=== PATIENT | male | born 1930 | race Caucasian/White ===

== ENCOUNTER 2017-12-23 15:09 | Emergency (ER) | payer OTHER ==
[~2017-12-23] VITALS: Ht 167.6 cm; Wt 61.7 kg
[~2017-12-23 15:09] MED LIST: ASPIR 8181 MG PO; LEVOTHROID25 MCG PO; LEVOTHYROXINE75 MCG PO; MULTI-VITAMIN1 EACH PO; NAPROSYN500 MG PO; NEXIUM20 MG PO; VICODIN 5-5001 EACH PO
[2017-12-23 16:00] LABS: BASOPHILS # (AUTO) 0.1 (0.0-0.1); BASOPHILS % 1.4 % (0.0-1.0); EOSINOPHILS # (AUTO) 0.9 (0.0-0.4); EOSINOPHILS % 11.2 % (0.0-6.0); HEMOGLOBIN 14.5 g/dL (14.0-18.0); LYMPHOCYTES # (AUTO) 1.9 (1.0-3.2); LYMPHOCYTES % 24.1 % (18.0-39.1); MEAN CORPUSCULAR HEMOGLOBIN 33.2 pg (28-32); MEAN CORPUSCULAR HGB CONC 34.5 g/dL (31-35); MEAN CORPUSCULAR VOLUME 96.1 fL (81-99); MONOCYTES # (AUTO) 0.9 (0.2-0.8); MONOCYTES % 11.3 % (4.4-11.3); NEUTROPHILS # (AUTO) 4.1 (2.1-6.9); NEUTROPHILS % 51.5 % (38.7-80.0); PLATELET COUNT 155 x10e3/uL (140-360); RED BLOOD COUNT 4.37 x10e6/uL (4.3-5.7)
[2017-12-23 16:03] LABS: BILIRUBIN,URINE NEGATIVE (NEGATIVE); CLARITY,URINE CLEAR (CLEAR); COLOR,URINE YELLOW (YELLOW); KETONES,URINE NEGATIVE (NEGATIVE); LEUKOCYTE ESTERASE ,URINE NEGATIVE (NEGATIVE); NITRITE,URINE NEGATIVE (NEGATIVE); PROTEIN,URINE DIPSTICK NEGATIVE (NEGATIVE); URINE UROBILINOGEN 0.2 mg/dL (0.2 - 1)
[2017-12-23 16:09] LABS: INR 1.25; PROTHROMBIN TIME 14.8 seconds (11.9-14.5)
[2017-12-23 16:10] LABS: PARTIAL THROMBOPLASTIN TIME 28.5 seconds (23.8-35.5)
[2017-12-23 16:17] LABS: BACTERIA,URINE RARE /HPF; RBC,URINE 0-5 /HPF (0-5); WBC,URINE (MAN) 0-5 /HPF (0-5)
[2017-12-23 16:19] LABS: ALANINE AMINOTRANSFERASE 14 IU/L (0-55); ALBUMIN 3.8 g/dL (3.5-5.0); ALBUMIN/GLOBULIN RATIO 1.4 (0.8-2.0); ALKALINE PHOSPHATASE 60 IU/L (40-150); BLOOD UREA NITROGEN 14 mg/dL (7-26); BUN/CREATININE RATIO 18 (6-25); CALCIUM 9.7 mg/dL (8.4-10.2); CARBON DIOXIDE 27 mmol/L (22-29); CHLORIDE 107 mmol/L (98-107); CREATINE KINASE 42 IU/L (30-200); CREATININE, SERUM 0.76 mg/dL (0.72-1.25); EST GLOMERULAR FILTRATION RATE > 60 ML/MIN (60-); GLUCOSE 104 mg/dL (74-118); SODIUM 138 mmol/L (136-145)
--- NOTE | 2017-12-23 16:50 | Diagnostic Imaging Report ---
PROCEDURE: A single AP view of the chest. COMPARISON: 01/24/2017 INDICATIONS: DIZZINESS, BLACK OUT FINDINGS: Lines/tubes: None. Lungs: The lungs are well inflated and clear. There is no evidence of pneumonia or pulmonary edema. Pleura: There is no pleural effusion or pneumothorax. Heart and mediastinum: Normal heart size. Moderate tortuosity of the thoracic aorta, unchanged. Bones: No acute bony abnormality. Multilevel degenerative changes of the thoracic spine. IMPRESSION: No evidence of infection or edema. Dictated by: Reid Pizano M.D. on 12/23/2017 at 16:54 Electronically approved by: Reid Pizano M.D. on 12/23/2017 at 16:54
--- NOTE | 2017-12-23 21:48 | Diagnostic Imaging Report ---
Examination: CT head without contrast Clinical Indication: Dizziness. Technique: Transaxial noncontrast images from the skull base through the vertex were obtained. Sagittal and coronal reformatted images were done. Comparison: None. Findings: Scalp: No abnormalities. Bones: Intact. No fractures. No blastic or lytic lesions. Brain sulci: Mild volume loss for patient's age. Ventricles: No hydrocephalus. Extra-axial space: No abnormalities. Parenchyma: There are mild confluent areas of low-attenuation within subcortical and periventricular white matter, nonspecific, but could represent microvascular ischemic disease. Chronic lacunar infarcts are demonstrated in the right caudate head and anterior limb of the right internal capsule No masses, hemorrhage, or acute or chronic cortical based vascular insults. Suprasellar region: No abnormalities. Craniocervical junction: The foramen magnum is patent. No Chiari one malformation. Incidental findings: Bilateral cataract surgery. Atherosclerotic calcification of the cavernous and supraclinoid internal carotid and V4 segments of the bilateral vertebral arteries. Impression: 1. No acute intracranial abnormality. 2. Moderate chronic microvascular ischemic change and mild volume loss. 3. Chronic infarcts, as above. Signed by: Dr. Misty Saavedra M.D. on 12/23/2017 9:45 PM
[2017-12-23 22:04] VITALS: BP 129/68
== END 2017-12-23 22:14 | disposition home or self-care (01) ==
LOC: ER 15:09
DX: R10.9 Unspecified abdominal pain (principal); R42 Dizziness and giddiness; F03.90 Unspecified dementia, unspecified severity, without behavioral disturbance, psychotic disturbance, mood disturbance, and anxiety; K21.9 Gastro-esophageal reflux disease without esophagitis; Z98.890 Other specified postprocedural states
CPT/HCPCS: 36415; 70450; 71045; 80053; 81001; 82550; 82553; 83880; 84484; 85025; 85610; 85730; 93005; 99284

== ENCOUNTER 2019-08-25 14:19 | Emergency (ER) | payer OTHER ==
[~2019-08-25] VITALS: Ht 167.6 cm; Wt 61.7 kg
--- OUTSIDE RECORDS SUMMARY | 2019-08-25 14:23 | XMS REPORT ---
Author Author [facility] Address Unknown Phone Unavailable Care Team Providers Care Coding Quality Analyst Name Role Phone Wan HOLLOWAY KATYA Unavailable Unavailable Problems This patient has no known problems. Allergies, Adverse Reactions, Alerts This patient has no known allergies or adverse reactions. Medications This patient has no known medications. Results Test Description Test Time Test Comments Text Results Atomic Results Result Comments CT BRAIN WO 2017-12-23 21:43:00 [place] [address] Patient Name: ROSA MARIA MCKEON MR #: [id number] : 1930 Age/Sex: 87/M Req #: [id number] [facility] Physician: Ordered by: PAPA ARANDA MD Report #: [id number] Location: ER Room/Bed: Procedure: [id number] CT/CT BRAIN WO Exam Date: 12/23/17 Exam Time: 2049 REPORT STATUS: Signed Examination: CT head without contrast Clinical Indication: Dizziness. Technique: Transaxial noncontrast images from the skull base through the vertex were obtained. Sagittal and coronal reformatted images were done. Comparison: None. Findings: Scalp: No abnormalities. Bones: Intact. No fractures. No blastic or lytic lesions. Brain sulci: Mild volume loss for patient's age. Ventricles: No hydrocephalus. Extra-axial space: No abnormalities. Parenchyma: There are mild confluent areas of low- attenuation within subcortical and periventricular white matter, nonspecific, but could represent microvascular ischemic disease. Chronic lacunar infarcts are demonstrated in the right caudate head and anterior limb of the right internal capsule No masses, hemorrhage, or acute or chronic cortical based vascular insults. Suprasellar region: No abnormalities. Craniocervical junction: The foramen magnum is patent. No Chiari one malformation. Incidental findings: Bilateral cataract surgery. Atherosclerotic calcification of the cavernous and supraclinoid internal carotid and V4 segments of the bilateral vertebral arteries. Impression: 1. No acute intracranial abnormality. 2. Moderate chronic microvascular ischemic change and mild volume loss. 3. Chronic infarcts, as above. Signed by: Dr. Msity Saavedra M.D. on 12/23/2017 9:45 PM Dictated By: MISTY PEREA MD 44 Transcribed By: ROMAIN on 12/23/172144 COPY TO: PAPA ARANDA MD CHEST SINGLE (NOT PORTABLE) 2017-12-23 16:54:00 [place] [address] Patient Name: ROSA MARIA MCKEON MR #: [id number] : 1930 Age/Sex: 87/M Req #: [id number] Adm Physician: Ordered by: KATYA HOLLOWAY MD Report #: [id number] Location: ER Room/Bed: Procedure: [id number] DX/CHEST SINGLE (NOT PORTABLE) Exam Date: 12/23/17 Exam Time: 1622 REPORT STATUS: Signed PROCEDURE: A single AP view of the chest. COMPARISON: 01/24/2017 INDICATIONS: DIZZINESS, BLACK OUT FINDINGS: Lines/tubes: None. Lungs: The lungs are well inflated and clear. There is no evidence of pneumonia or pulmonary edema. Pleura: There is no pleural effusion or pneumothorax. Heart and mediastinum: Normal heart size. Moderate tortuosity of the thoracic aorta, unchanged. Bones: No acute bony abnormality. Multilevel degenerative changes of the thoracic spine. IMPRESSION: No evidence of infection or edema. Dictated by: Mita Pizano M.D. on 12/23/2017 at 16:54 Electronically approved by: Mita Pizano M.D. on 12/23/2017 at 16:54 Dictated By: MITA PIZANO MD 1652 Transcribed By: MONIQUE on 12/23/17 1654 COPY TO: KATYA HOLLOWAY MD
[2019-08-25] MEDS ORDERED: ONDANSETRON HCL INJ 2MG/ML 2ML 2 MG/ML VIAL IV STA (14:49)
[2019-08-25] MEDS ORDERED: ASPIRIN 81 MG CHEW TAB PO ONE (15:00)
[2019-08-25 15:42] LABS: BASOPHILS # (AUTO) 0.1 (0.0-0.1); BASOPHILS % 1.2 % (0.0-1.0); EOSINOPHILS # (AUTO) 0.4 (0.0-0.4); HEMATOCRIT 44.9 % (38.2-49.6); HEMOGLOBIN 15.6 g/dL (14.0-18.0); LYMPHOCYTES # (AUTO) 1.1 (1.0-3.2); LYMPHOCYTES % 13.5 % (18.0-39.1); MEAN CORPUSCULAR HEMOGLOBIN 33.2 pg (28-32); MEAN CORPUSCULAR HGB CONC 34.7 g/dL (31-35); MEAN CORPUSCULAR VOLUME 95.5 fL (81-99); MONOCYTES # (AUTO) 0.8 (0.2-0.8); MONOCYTES % 9.7 % (4.4-11.3); NEUTROPHILS % 70.2 % (38.7-80.0); PLATELET COUNT 140 x10e3/uL (140-360); RED CELL DISTRIBUTION WIDTH 13.5 % (11.7-14.4)
[2019-08-25 15:47] LABS: INR 1.09; PROTHROMBIN TIME 14.8 seconds (11.9-14.5)
[2019-08-25 15:48] LABS: PARTIAL THROMBOPLASTIN TIME 30.4 seconds (23.8-35.5)
[2019-08-25 15:58] LABS: ALANINE AMINOTRANSFERASE 11 IU/L (0-55); ALBUMIN 3.8 g/dL (3.5-5.0); ALBUMIN/GLOBULIN RATIO 1.3 (0.8-2.0); ALKALINE PHOSPHATASE 75 IU/L (40-150); ANION GAP 16.2 mmol/L (8-16); BLOOD UREA NITROGEN 13 mg/dL (7-26); BUN/CREATININE RATIO 16 (6-25); CALCIUM 9.7 mg/dL (8.4-10.2); CARBON DIOXIDE 22 mmol/L (22-29); CHLORIDE 102 mmol/L (98-107); CREATINE KINASE 32 IU/L (30-200); EST GLOMERULAR FILTRATION RATE > 60 ML/MIN (60-); GLUCOSE 91 mg/dL (74-118); POTASSIUM 4.2 mmol/L (3.5-5.1); SODIUM 136 mmol/L (136-145)
--- NOTE | 2019-08-25 16:10 | Diagnostic Imaging Report ---
EXAMINATION: PA and lateral views of the chest. COMPARISON: None CLINICAL HISTORY: Cough DISCUSSION: Lines/tubes: Sternotomy wires Lungs: The lungs are well inflated and clear. No pneumonia or pulmonary edema. Pleura: No pleural effusion or pneumothorax. Heart and mediastinum: Prominent heart. Tortuous aorta. Bones and soft tissues: No acute bony abnormalities. IMPRESSION: No acute cardiopulmonary abnormalities. Signed by: Dr. Aaron Rosado M.D. on 08/25/2019 4:08 PM
[2019-08-25 16:27] LABS: INFLUENZAE A&B ANTIGEN (RAPID) NEGATIVE (NEGATIVE); STREPTOCOCCUS GRP A ANTIGEN NEGATIVE (NEGATIVE)
[2019-08-25] MEDS ORDERED: HYDROCODONE/CHLORPHENIRAMINE 5 ML LIQCR PO ONE (16:30)
[2019-08-25 18:05] LABS: CREATINE KINASE MB 1.1 ng/mL (0-5.0)
[2019-08-25 18:45] VITALS: BP 109/90
== END 2019-08-25 18:53 | disposition home or self-care (01) ==
LOC: ER 14:19
DX: J20.9 Acute bronchitis, unspecified (principal); R07.89 Other chest pain; E03.9 Hypothyroidism, unspecified; F03.90 Unspecified dementia, unspecified severity, without behavioral disturbance, psychotic disturbance, mood disturbance, and anxiety; Z95.3 Presence of xenogenic heart valve; Z87.891 Personal history of nicotine dependence; Z79.82 Long term (current) use of aspirin; K21.9 Gastro-esophageal reflux disease without esophagitis
CPT/HCPCS: 36415; 71046; 80053; 82550; 82553; 83518; 83735; 83880; 84484; 85025; 85610; 85730; 87040; 87070; 87400; 93005; 99283; J2405

== ENCOUNTER 2020-04-05 15:22 | Emergency (ER) | payer OTHER ==
[~2020-04-05] VITALS: Ht 165.1 cm; Wt 59.0 kg
--- NOTE | 2020-04-05 17:00 | Diagnostic Imaging Report ---
Exam: ELBOW RIGHT COMPLETE - 3 views History: Right elbow pain, fall Comparison: None. Findings: Subtle cortical irregularity along the lateral aspect of the radial head, may represent small nondisplaced fracture. Diffuse osseous demineralization. Enthesopathic changes of the medial lateral epicondyles. No joint malalignment or dislocation. Limited evaluation of joint effusion given positioning. Advanced degenerative changes of the ulnotrochlear joint. Diffuse soft tissue swelling. Scattered vascular calcifications. Impression: 1. Subtle cortical irregularity along the lateral aspect of the radial head, may represent small nondisplaced radial head fracture. 2. 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 Signed by: Dr. Bart Staley M.D. on 04/05/2020 4:57 PM
--- NOTE | 2020-04-05 17:05 | Diagnostic Imaging Report ---
Exam: Head CT without contrast History: Trauma, fall Comparison studies: Head CT 12/23/2017 Technique: Axial images were obtained from the skull base to the vertex. Coronal and sagittal images reconstructed from the axial data. Dose modulation, iterative reconstruction, and/or weight based adjustment of the mA/kV was utilized to reduce the radiation dose to as low as reasonably achievable. Radiation dose: Total DLP: 1017 mGy*cm. Estimated effective dose: DLP x 0.015 Intravenous contrast: None Findings: Scalp: Small left frontal scalp hematoma is without associated subcutaneous emphysema. No retained hyperdense foreign body. Bones: No fractures, blastic or lytic lesions. Brain sulci: Moderately prominent Ventricles: Moderate compensatory dilatation. No hydrocephalus. Extra-axial spaces: No masses, no fluid collection. Parenchyma: No mass, acute hemorrhage or acute cortical insult. Unchanged chronic insult with encephalomalacia and gliosis centered along the left middle frontal gyrus. Unchanged chronic lacunar infarct in the head of the right caudate nucleus. Ill-defined and confluent hypodensities in the supratentorial white matter are nonspecific but are most compatible with chronic microvascular ischemic changes. Sellar/suprasellar region: No abnormalities. Craniocervical junction: Patent foramen magnum. No Chiari one malformation. Incidental findings: Atherosclerotic calcifications in the carotid siphons and intradural vertebral arteries. IMPRESSION: 1. Left frontal scalp hematoma without underlying fracture 2. No acute intracranial abnormalities. 3. No other changes from the prior head CT of 12/23/2017. 4. Chronic findings: Moderate generalized parenchymal volume loss, chronic left middle frontal insult, chronic right caudate nucleus lacunar infarct and moderate microvascular ischemic changes. Signed by: Dr. Prosper Torrez M.D. on 04/05/2020 5:01 PM
--- NOTE | 2020-04-05 17:18 | Diagnostic Imaging Report ---
History: Trauma, fall Comparison studies: None Technique: Axial images were obtained through the cervical region. Coronal and sagittal images reconstructed from the axial data. Dose modulation, iterative reconstruction, and/or weight based adjustment of the mA/kV was utilized to reduce the radiation dose to as low as reasonably achievable. Intravenous contrast: None Findings: Atlantoaxial articulation: Intact. Alignment: Straining of the usual cervical lordotic curvature. Approximately 2 to 3 mm degenerative retrolisthesis of C5 on C6 and anterolisthesis of T1 on T2. Cervicomedullary junction: No abnormalities. The foramen magnum is patent. Soft tissues: No gross acute abnormalities. Vertebrae: No fractures, infection or neoplasm. Degenerative changes: Disc degeneration, mild from C2 to C4, severe at C4-C5 and C5-C6, moderate at C6-C7 and mild from C7 to T2. The C4-C5 disc space and facets are fused. Mild to moderate canal stenosis at C4-C5 and C5-C6 due to disc osteophyte complexes and minimal retrolisthesis of C5 on C6. Advanced multilevel facet arthrosis. Multilevel uncovertebral and facet arthrosis result in multilevel foraminal stenosis which is mild bilaterally at C2-C3, severe left and mild right at C3-C4, moderate left and mild right at C4-C5, severe left and moderate right at C5-C6, and moderate left and mild right at C6-C7. Incidental findings: Scattered calcified atherosclerosis.. IMPRESSION: 1. No cervical spine fracture. 2. Degenerative retrolisthesis of C5 on C6 and anterolisthesis of T1 on T2. 3. Additional advanced multilevel degenerative changes as described. Ligament, spinal cord and or vascular abnormalities cannot be excluded on the basis of this examination. Signed by: Dr. Prosper Torrez M.D. on 04/05/2020 5:14 PM
--- NOTE | 2020-04-05 17:50 | Emergency Department Note ---
History of Present Illnes History of Present Illness Chief Complaint: Extremity Trauma/Pain History of Present Illness This is a 89 year old male pt brought in by daughter for evaluation of a closed head injury and right elbow pain s/p fall, pt sustained a fall today while pulling weeds from his yard, abrasion noted to the left side of the forehead and limited ROM to the right arm, tenderness to right elbow noted . Historian: Patient Arrival Mode: Car Last Chalker Required: No Onset (how long ago): day(s) (FALL YESTERDAY) Location: HEAD, RIGHT ELBOW Quality: PAIN Radiation: Reports non-radiation Severity: moderate Onset quality: sudden Timing of current episode: constant Progression: unchanged Chronicity: new Context: Reports trauma/injury; Denies recent illness Relieving factors: none Exacerbating factors: none Associated symptoms: Reports denies other symptoms Past Medical/Family History Physician Review I have reviewed the patient's past medical and family history. Any updates have been documented here. 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 AAA REPAIR Social History Smoking Cessation: Never Smoker Counseling Performed: No Alcohol Use: None Any Illegal Drug Use: No Other Last Tetanus: UTD Any Pre-Existing Lines (PICC,: No Review of Systems Review of Systems Constitutional: Reports as per HPI EENTM: Reports no symptoms Cardiovascular: Reports no symptoms Respiratory: Reports no symptoms Gastrointestinal: Reports no symptoms Genitourinary: Reports no symptoms Musculoskeletal: Reports as per HPI Integumentary: Reports no symptoms Neurological: Reports as per HPI Psychological: Reports no symptoms Endocrine: Reports no symptoms Hematological/Lymphatic: Reports no symptoms Physical Exam Related Data Allergies: Coded Allergies: Penicillins (Verified Allergy, Mild, N/V, 12/23/17) Triage Vital Signs Vital Signs Date Time Temp Pulse Resp B/P (MAP) Pulse Ox O2 Delivery O2 Flow Rate FiO2 04/05/20 15:49 99.0 80 18 132/72 98 Room Air Vital signs reviewed: Yes Physical Exam CONSTITUTIONAL Constitutional: Present well-developed, Present well-nourished HENT HENT: Present normocephalic, Present other (ABRASION TO FOREHEAD JUST LEFT OF MIDLINE) HENT L/R: Present left ext ear normal, Present right ext ear normal EYES Eyes: Reports PERRL, Reports conjunctivae normal NECK Neck: Present ROM normal PULMONARY Pulmonary: Present effort normal, Present breath sounds normal CARDIOVASCULAR Cardiovascular: Present regular rhythm, Present heart sounds normal, Present capillary refill normal, Present normal rate GASTROINTESTINAL Abdominal: Present soft, Present nontender, Present bowel sounds normal GENITOURINARY Genitourinary: Present exam deferred SKIN Skin: Present warm, Present dry MUSCULOSKELETAL Musculoskeletal: Present swelling (MILD SWELLING TO RIGHT ELBOW, TENDERNESS AND DECR ROM DUE TO PAIN, DISTAL N/V INTACT) NEUROLOGICAL Neurological: Present alert, Present oriented x 3, Present no gross motor or sensory deficits PSYCHOLOGICAL Psychological: Present mood/affect normal, Present judgement normal Results Imaging Imaging results reviewed: Yes Impressions Exam: ELBOW RIGHT COMPLETE - 3 views History: Right elbow pain, fall Comparison: None. Findings: Subtle cortical irregularity along the lateral aspect of the radial head, may represent small nondisplaced fracture. Diffuse osseous demineralization. Enthesopathic changes of the medial lateral epicondyles. No joint malalignment or dislocation. Limited evaluation of joint effusion given positioning. Advanced degenerative changes of the ulnotrochlear joint. Diffuse soft tissue swelling. Scattered vascular calcifications. Impression: 1. Subtle cortical irregularity along the lateral aspect of the radial head, may represent small nondisplaced radial head fracture. 2. 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 Signed by: Dr. Bart Staley M.D. on 04/05/2020 4:57 PM Assessment & Plan Medical Decision Making MDM FALL, ABRASION TO FOREHEAD, RIGHT ELBOW PAIN/SWELLING - CHECK CT HEAD/C-SPINE, XRAYS OF R ELBOW - R/O CEREBRAL BLEED, C-SPINE FX, FRACTURE RADIUS OR ULNA Reassessment Reassessment SPLINT RIGHT ELBOW, DC HOME, F/U PCP AND DR Senait FARIA, HEAD SHEET PRECAUTIONS Assessment & Plan Final Impression: (1) Radial head fracture (2) Fall (3) Contusion of scalp Depart Disposition: HOME, SELF-CARE Last Vital Signs Date Time Temp Pulse Resp B/P (MAP) Pulse Ox O2 Delivery O2 Flow Rate FiO2 04/05/20 16:30 74 16 115/72 98 Room Air 04/05/20 15:49 99.0 Home Meds Reported Medications Levothyroxine Sodium (LEVOTHYROXINE SODIUM) 75 Mcg Tablet, 75 MCG PO DAILY, #30 TAB 01/24/17 Multivitamin (MULTI-VITAMIN DAILY) 1 Each Tablet, PO DAILY 06/23/13 Aspirin (ASPIR 81) 81 Mg Tablet.dr, 81 MG PO DAILY 06/23/13 Esomeprazole Magnesium (NEXIUM) 20 Mg Capsule.dr, 20 MG PO DAILY 06/23/13 Naproxen (NAPROSYN) 500 Mg Tablet, 500 MG PO DAILY 06/23/13 ИВАН DALLAS MD Apr 05, 2020 17:50
[2020-04-05] MEDS ORDERED: KETOROLAC TROMETHAMINE 30 MG/ML VIAL IM PRN (18:15)
== END 2020-04-05 18:48 | disposition home or self-care (01) ==
LOC: ER 15:47
DX: S52.121A Displaced fracture of head of right radius, initial encounter for closed fracture (principal); W01.0XXA Fall on same level from slipping, tripping and stumbling without subsequent striking against object, initial encounter; Y93.H2 Activity, gardening and landscaping; Y92.007 Garden or yard of unspecified non-institutional (private) residence as the place of occurrence of the external cause; I10 Essential (primary) hypertension; K21.9 Gastro-esophageal reflux disease without esophagitis; G30.9 Alzheimer's disease, unspecified; F02.80 Dementia in other diseases classified elsewhere, unspecified severity, without behavioral disturbance, psychotic disturbance, mood disturbance, and anxiety
CPT/HCPCS: 70450; 72125; 73080; 99284; J1885